=== PATIENT | male | born 1980 | race Caucasian/White ===

== ENCOUNTER 2019-01-29 06:48 | Emergency (ER) | payer SELFPAY ==
[~2019-01-29] VITALS: Ht 152.4 cm; Wt 66.0 kg
[2019-01-29] MEDS ORDERED: KETOROLAC 60MG/2ML VIAL IM ONE (08:15)
[2019-01-29] MEDS ORDERED: HYDROCODONE/ACETAMINOPHEN 5/325MG TABLET PO ONE (08:15)
[2019-01-29 08:32] VITALS: BP 132/82
== END 2019-01-29 09:57 | disposition home or self-care (01) ==
LOC: ER 06:48 → EDBD 06:48 → ER 09:57
DX: S46.092A Other injury of muscle(s) and tendon(s) of the rotator cuff of left shoulder, initial encounter (principal); W10.8XXA Fall (on) (from) other stairs and steps, initial encounter; Y93.89 Activity, other specified; Y92.018 Other place in single-family (private) house as the place of occurrence of the external cause
CPT/HCPCS: 73030; 96372; 99283; J1885; L3670